=== PATIENT | female | born 1970 | race Caucasian/White ===

== ENCOUNTER 2024-02-15 13:38 | Outpatient (CLI) | payer OTHER, SELFPAY | END 2024-02-15 13:39 | disposition home or self-care (01) | LOC: WOUND 13:43 | PROVIDERS: Visit Provider Nurse Practitioner Family | DX: S81.811A Laceration without foreign body, right lower leg, initial encounter (principal); W22.8XXA Striking against or struck by other objects, initial encounter; Y99.0 Civilian activity done for income or pay; G35 Multiple sclerosis | CPT/HCPCS: 11042; G0463 ==

== ENCOUNTER 2024-02-21 12:45 | Outpatient (CLI) | payer OTHER, SELFPAY | END 2024-02-21 12:46 | disposition home or self-care (01) | LOC: WOUND 12:45 | PROVIDERS: Visit Provider Nurse Practitioner Family | DX: S81.811A Laceration without foreign body, right lower leg, initial encounter (principal); G35 Multiple sclerosis | CPT/HCPCS: 11042 ==

== ENCOUNTER 2024-02-28 08:12 | Outpatient (CLI) | payer OTHER, SELFPAY | END 2024-02-28 08:13 | disposition home or self-care (01) | LOC: WOUND 08:12 | PROVIDERS: Visit Provider Nurse Practitioner Family | DX: S81.811A Laceration without foreign body, right lower leg, initial encounter (principal); G35 Multiple sclerosis | CPT/HCPCS: 11042 ==

== ENCOUNTER 2024-03-06 09:44 | Outpatient (CLI) | payer OTHER, SELFPAY | END 2024-03-06 09:45 | disposition home or self-care (01) | LOC: WOUND 09:44 | PROVIDERS: Visit Provider Nurse Practitioner Family | DX: S81.811A Laceration without foreign body, right lower leg, initial encounter (principal); W22.8XXA Striking against or struck by other objects, initial encounter; Y99.0 Civilian activity done for income or pay | CPT/HCPCS: 15271; Q4158 ==

== ENCOUNTER 2024-03-14 10:30 | Outpatient (CLI) | payer OTHER, SELFPAY | END 2024-03-14 10:31 | disposition home or self-care (01) | LOC: WOUND 10:30 | PROVIDERS: Visit Provider Nurse Practitioner Family | DX: S81.811A Laceration without foreign body, right lower leg, initial encounter (principal); G35 Multiple sclerosis | CPT/HCPCS: 15271; Q4158 ==

== ENCOUNTER 2024-03-20 12:58 | Outpatient (CLI) | payer OTHER, SELFPAY | END 2024-03-20 12:59 | disposition home or self-care (01) | LOC: WOUND 12:58 | PROVIDERS: Visit Provider Nurse Practitioner Family | DX: S81.811A Laceration without foreign body, right lower leg, initial encounter (principal); G35 Multiple sclerosis; W22.8XXA Striking against or struck by other objects, initial encounter | CPT/HCPCS: 15271; Q4158 ==

== ENCOUNTER 2024-03-27 09:58 | Outpatient (CLI) | payer OTHER, SELFPAY | END 2024-03-27 09:59 | disposition home or self-care (01) | LOC: WOUND 09:59 | PROVIDERS: Visit Provider Nurse Practitioner Family | DX: S81.811A Laceration without foreign body, right lower leg, initial encounter (principal); G35 Multiple sclerosis | CPT/HCPCS: 15271; Q4121 ==

== ENCOUNTER 2024-04-03 09:32 | Outpatient (CLI) | payer OTHER, SELFPAY | END 2024-04-03 09:33 | disposition home or self-care (01) | LOC: WOUND 09:35 | PROVIDERS: Visit Provider Nurse Practitioner Family | DX: S81.811A Laceration without foreign body, right lower leg, initial encounter (principal); W22.8XXA Striking against or struck by other objects, initial encounter; Y99.0 Civilian activity done for income or pay | CPT/HCPCS: 15271; Q4121 ==

== ENCOUNTER 2024-04-10 09:55 | Outpatient (CLI) | payer OTHER, SELFPAY | END 2024-04-10 09:56 | disposition home or self-care (01) | LOC: WOUND 09:56 | PROVIDERS: Visit Provider Physician Assistant Surgical | DX: S81.811A Laceration without foreign body, right lower leg, initial encounter (principal); G35 Multiple sclerosis | CPT/HCPCS: G0463 ==

== ENCOUNTER 2024-04-17 12:45 | Outpatient (CLI) | payer OTHER, SELFPAY | END 2024-04-17 12:46 | disposition home or self-care (01) | LOC: WOUND 12:45 | PROVIDERS: Visit Provider Nurse Practitioner Family | DX: S81.811A Laceration without foreign body, right lower leg, initial encounter (principal); W22.8XXA Striking against or struck by other objects, initial encounter | CPT/HCPCS: 15271; Q4121 ==

== ENCOUNTER 2024-04-24 12:46 | Outpatient (CLI) | payer OTHER, SELFPAY | END 2024-04-24 12:47 | disposition home or self-care (01) | LOC: WOUND 12:46 | PROVIDERS: Visit Provider Nurse Practitioner Family | DX: S81.811A Laceration without foreign body, right lower leg, initial encounter (principal); W22.8XXA Striking against or struck by other objects, initial encounter | CPT/HCPCS: G0463 ==

== ENCOUNTER 2024-05-01 13:29 | Outpatient (CLI) | payer OTHER, SELFPAY | END 2024-05-01 13:30 | disposition home or self-care (01) | LOC: WOUND 13:30 | PROVIDERS: Visit Provider Nurse Practitioner Family | DX: S81.811A Laceration without foreign body, right lower leg, initial encounter (principal); W22.8XXA Striking against or struck by other objects, initial encounter | CPT/HCPCS: 15271; Q4121 ==

== ENCOUNTER 2024-05-08 12:46 | Outpatient (CLI) | payer OTHER, SELFPAY | END 2024-05-08 12:47 | disposition home or self-care (01) | LOC: WOUND 12:46 | PROVIDERS: Visit Provider Nurse Practitioner Family | DX: S81.811A Laceration without foreign body, right lower leg, initial encounter (principal); W22.8XXA Striking against or struck by other objects, initial encounter | CPT/HCPCS: 11042 ==

== ENCOUNTER 2024-05-15 12:49 | Outpatient (CLI) | payer OTHER, SELFPAY | END 2024-05-15 12:50 | disposition home or self-care (01) | LOC: WOUND 12:49 | PROVIDERS: Visit Provider Nurse Practitioner Family | DX: S81.811A Laceration without foreign body, right lower leg, initial encounter (principal); W22.8XXA Striking against or struck by other objects, initial encounter | CPT/HCPCS: 11042 ==

== ENCOUNTER 2024-05-29 12:52 | Outpatient (CLI) | payer OTHER, SELFPAY | END 2024-05-29 12:53 | disposition home or self-care (01) | PROVIDERS: Visit Provider Nurse Practitioner Family | DX: S81.811A Laceration without foreign body, right lower leg, initial encounter (principal); L29.89 Other pruritus; W22.8XXA Striking against or struck by other objects, initial encounter | CPT/HCPCS: 15271; Q4158 ==

== ENCOUNTER 2024-06-05 12:46 | Outpatient (CLI) | payer OTHER, SELFPAY | END 2024-06-05 12:47 | disposition home or self-care (01) | LOC: WOUND 12:46 | PROVIDERS: Visit Provider Nurse Practitioner Family | DX: S81.811A Laceration without foreign body, right lower leg, initial encounter (principal); Y99.0 Civilian activity done for income or pay; W22.8XXA Striking against or struck by other objects, initial encounter | CPT/HCPCS: 97597 ==

== ENCOUNTER 2024-06-12 12:11 | Outpatient (CLI) | payer OTHER, SELFPAY | END 2024-06-12 12:12 | disposition home or self-care (01) | LOC: WOUND 12:11 | PROVIDERS: Visit Provider Nurse Practitioner Family | DX: S81.811A Laceration without foreign body, right lower leg, initial encounter (principal); L29.89 Other pruritus; W22.8XXA Striking against or struck by other objects, initial encounter | CPT/HCPCS: 97597 ==

== ENCOUNTER 2024-06-19 12:44 | Outpatient (CLI) | payer OTHER, SELFPAY | END 2024-06-19 12:45 | disposition home or self-care (01) | LOC: WOUND 12:44 | PROVIDERS: Visit Provider Nurse Practitioner Family | DX: S81.811D Laceration without foreign body, right lower leg, subsequent encounter (principal); W22.8XXD Striking against or struck by other objects, subsequent encounter; Y99.0 Civilian activity done for income or pay | CPT/HCPCS: G0463 ==